=== PATIENT | male | born 1955 | race Caucasian/White ===

== ENCOUNTER 2018-09-05 17:58 | Emergency (ER) | payer MEDICAID ==
[~2018-09-05] VITALS: Ht 172.7 cm; Wt 104.3 kg
--- NOTE | 2018-09-05 18:04 | NUR ---
ED Nurse Note: Pt brought in by ambulance due to ETOH. Per EMS, 2 bottles of vodka was found beside the patient. Pt is drowsy, not following commands and with slurring of speech. No respiratory distress.
--- NOTE | 2018-09-05 18:05 | Emergency Room Report ---
History of Present Illness General Chief Complaint: Alcohol Intoxication Source: Medical Record Present Illness HPI 63-year-old male patient presents the ER brought in by ambulance for EtOH intoxication. EMS reports that they were called by bystanders who saw patient sitting on the curb speaking belligerently to himself. Reports patient has been cooperative however unable to answer questions. Denies head trauma. Denies vomiting. on initial exam patient currently snoring, easily arousable. Denies chest pain, shortness of breath, abdominal pain. Allergies: Coded Allergies: No Known Allergies (Unverified , 10/18/15) Patient History Past Medical History: see triage record Reviewed Nursing Documentation: PMH: Agreed; PSxH: Agreed Nursing Documentation-PMH Past Medical History: No Stated History Review of Systems All Other Systems: negative except mentioned in HPI Physical Exam Vital Signs Date Time Temp Pulse Resp B/P (MAP) Pulse Ox O2 Delivery O2 Flow Rate FiO2 09/05/18 17:54 98.1 104 18 122/71 90 Room Air Sp02 EP Interpretation: reviewed, normal General Appearance: well appearing, no apparent distress, alert, GCS 15, non- toxic Head: normocephalic, atraumatic, other - Negative lu sign, negative raccoon eyes Eyes: bilateral eye normal inspection, bilateral eye PERRL ENT: hearing grossly normal, normal pharynx, no angioedema, normal voice, uvula midline, moist mucus membranes Neck: full range of motion Respiratory: lungs clear, normal breath sounds, no rhonchi, no respiratory distress, no accessory muscle use, no wheezing, speaking full sentences Cardiovascular #1: regular rate, rhythm, no edema Gastrointestinal: non tender, soft, no mass, non-distended, no guarding, no rebound Musculoskeletal: back normal, digits/nails normal, gait/station normal, normal range of motion, non-tender Psychiatric: mood/affect normal Medical Decision Making PA Attestation Dr. Belcher is my supervising Physician whom patient management has been discussed with. Diagnostic Impression: Primary Impression: Acute alcoholic intoxication ER Course pt. presents to the ED for alcohol intoxication Ddx considered but are not limited to drug use, alcohol use, psychosis. Vital signs: are WNL, pt. is afebrile ER COURSE: patient resting comfortably in bed, in no acute distress, nontoxic appearing. Physical exam benign, lungs clear to auscultation, no trauma or lacerations, no abdominal TTP. Negative lu sign, negative raccoon eyes, no signs of head trauma, no reports of head trauma, does not require CT head at this time. CBC and CMP unremarkable, no elevation in LFTs Urine drug screen negative Acetaminophen and salicylate levels not elevated Serum alcohol elevated, provide patient with IV fluids. Will allow patient to sleep off EtOH intoxication Discharge when sober. Patient signed out to Dr. Abbott. - Please note that this Emergency Department Report was dictated using Regeneraterespiratory therapist assistant technology software, occasionally this can lead to erroneous entry secondary to interpretation by the dictation equipment. Labs Test 09/05/18 18:20 09/05/18 18:49 White Blood Count 11.7 K/UL (4.8-10.8) Red Blood Count 5.24 M/UL (4.70-6.10) Hemoglobin 14.1 G/DL (14.2-18.0) Hematocrit 43.8 % (42.0-52.0) Mean Corpuscular Volume 84 FL (80-99) Mean Corpuscular Hemoglobin 26.9 PG (27.0-31.0) Mean Corpuscular Hemoglobin Concent 32.2 G/DL (32.0-36.0) Red Cell Distribution Width 13.7 % (11.6-14.8) Platelet Count 313 K/UL (150-450) Mean Platelet Volume 4.4 FL (6.5-10.1) Neutrophils (%) (Auto) 55.5 % (45.0-75.0) Lymphocytes (%) (Auto) 30.6 % (20.0-45.0) Monocytes (%) (Auto) 8.3 % (1.0-10.0) Eosinophils (%) (Auto) 4.0 % (0.0-3.0) Basophils (%) (Auto) 1.6 % (0.0-2.0) Sodium Level 143 MMOL/L (136-145) Potassium Level 3.5 MMOL/L (3.5-5.1) Chloride Level 104 MMOL/L (98-107) Carbon Dioxide Level 26 MMOL/L (21-32) Anion Gap 13 mmol/L (5-15) Blood Urea Nitrogen 10 mg/dL (7-18) Creatinine 0.9 MG/DL (0.55-1.30) Estimat Glomerular Filtration Rate > 60 mL/min (>60) Glucose Level 101 MG/DL (74-106) Calcium Level 8.5 MG/DL (8.5-10.1) Total Bilirubin 0.2 MG/DL (0.2-1.0) Aspartate Amino Transf (AST/SGOT) 30 U/L (15-37) Alanine Aminotransferase (ALT/SGPT) 26 U/L (12-78) Alkaline Phosphatase 91 U/L (46-116) Total Protein 7.7 G/DL (6.4-8.2) Albumin 3.6 G/DL (3.4-5.0) Globulin 4.1 g/dL Albumin/Globulin Ratio 0.9 (1.0-2.7) Salicylates Level 1.1 ug/mL (2.8-20) Acetaminophen Level < 2 MCG/ML (10-30) Serum Alcohol 348 mg/dL Urine Opiates Screen Negative (NEGATIVE) Urine Barbiturates Screen Negative (NEGATIVE) Phencyclidine (PCP) Screen Negative (NEGATIVE) Urine Amphetamines Screen Negative (NEGATIVE) Urine Benzodiazepines Screen Negative (NEGATIVE) Urine Cocaine Screen Negative (NEGATIVE) Urine Marijuana (THC) Screen Negative (NEGATIVE) Last Vital Signs Date Time Temp Pulse Resp B/P (MAP) Pulse Ox O2 Delivery O2 Flow Rate FiO2 09/05/18 17:54 98.1 104 18 122/71 90 Room Air Disposition: HOME, SELF-CARE Condition: Stable Ganag Blake Sep 05, 2018 18:05
--- NOTE | 2018-09-05 18:29 | NUR ---
ED Nurse Note: Blood specimen sent.
[2018-09-05 18:53] LABS: BASOPHILS % (AUTO) 1.6 % (0.0-2.0); HEMATOCRIT 43.8 % (42.0-52.0); HEMOGLOBIN 14.1 G/DL (14.2-18.0); LYMPHOCYTES % (AUTO) 30.6 % (20.0-45.0); MEAN CORPUSCULAR VOLUME 84 FL (80-99); MONOCYTES % (AUTO) 8.3 % (1.0-10.0); NEUTROPHILS % (AUTO) 55.5 % (45.0-75.0); PLATELET COUNT 313 K/UL (150-450); RED BLOOD COUNT 5.24 M/UL (4.70-6.10); RED CELL DISTRIBUTION WIDTH 13.7 % (11.6-14.8); WHITE BLOOD COUNT 11.7 K/UL (4.8-10.8)
--- NOTE | 2018-09-05 19:00 | NUR ---
ED Nurse Note: Urine collected and sent.
--- NOTE | 2018-09-05 19:13 | NUR ---
HAND-OFF: Report given to Frances BERGER.
--- NOTE | 2018-09-05 19:14 | NUR ---
ED Nurse Note: Received report from Angelica/RN Pt was c/o ETOH. Pt is sleeping at this time. VSS. Will continue to monitor.
[2018-09-05 19:15] VITALS: BP 124/75
--- NOTE | 2018-09-05 19:15 | NUR ---
ED Nurse Note: Received report from Evette/CELINE. Pt is sleeping at this time, VSS. will continue to monitor.
[2018-09-05 19:21] LABS: ANION GAP 13 mmol/L (5-15); BLOOD UREA NITROGEN 10 mg/dL (7-18); CALCIUM 8.5 MG/DL (8.5-10.1); CARBON DIOXIDE 26 MMOL/L (21-32); CHLORIDE 104 MMOL/L (98-107); CREATININE 0.9 MG/DL (0.55-1.30); POTASSIUM 3.5 MMOL/L (3.5-5.1); SODIUM 143 MMOL/L (136-145)
[2018-09-05 19:26] LABS: ALANINE AMINOTRANSFERASE 26 U/L (12-78); ALBUMIN 3.6 G/DL (3.4-5.0); ALBUMIN/GLOBULIN RATIO 0.9 (1.0-2.7); ALKALINE PHOSPHATASE 91 U/L (46-116); ASPARTATE AMINO TRANSFERASE 30 U/L (15-37); BILIRUBIN,TOTAL 0.2 MG/DL (0.2-1.0)
[2018-09-06] MEDS ORDERED: Ipratropium 0.02% Inh Soln 2.5ml UD HHN ONE (00:45)
[2018-09-06] MEDS ORDERED: Albuterol ud Inhalation HHN ONE (00:45)
--- NOTE | 2018-09-06 00:46 | NUR ---
ED Nurse Note: Assisted Pt voided. Pt had some coughing at this time. MD ordered breathing treatment. Pt cassie crook after treatment.
[2018-09-06 05:41] VITALS: BP 123/71
--- NOTE | 2018-09-06 05:41 | NUR ---
ER DISCHARGE NOTE: Patient is cleared to be discharged per Dr. Abbott. Meds given as ordered. Pt is A/Ox4 on room air with stable vital signs, pt was given dc and prescription instructions, pt was able to verbalize understanding, pt ID band removed. pt is able to ambulate with steady gait and pt took all belongings.
== END 2018-09-06 05:40 | disposition home or self-care (01) ==
LOC: EDBD 17:58 → EMR 18:28
DX: F10.129 Alcohol abuse with intoxication, unspecified (principal)
CPT/HCPCS: 36415; 80053; 80307; 80329; 85025; 94640; 96360; 99284